=== PATIENT | female | born 1980 | race Caucasian/White ===

== ENCOUNTER 2022-05-21 13:13 | Inpatient (IN) ==
[2022-05-21] MEDS ORDERED: NS 0.9% 1000 ml BAG 1,000 ML IV ONE (13:38)
[2022-05-21 13:57] LABS: ABS Lymphocytes 1.3 10^3/ul (1.0-4.8); ABS Monocytes 0.4 10^3/ul (0-0.8); ABS Neutrophils 5.5 10^3/ul (1.5-7.7); Eosinophil % 0.1 %; Hematocrit 42 % (35-47); Hemoglobin 14.1 g/dL (12.0-16.0); Lymphocyte % 17.9 %; Mean Corpuscular HGB Conc 33 g/dL (31-36); Mean Corpuscular Hemoglobin 34 pg (27-31); Mean Corpuscular Volume 102 fL (80-97); Mean Platelet Volume 8.8 fL (7.4-10.4); Platelet Count 187 10^3/uL (150-450); Red Blood Count 4.16 10^6 /uL (3.70-4.87); Red Cell Distribution Width 13 % (10-15); White Blood Count 7.2 10^3/uL (3.5-10.8)
[2022-05-21 14:47] LABS: HCG Pregnancy < 0.60 mIU/mL
[2022-05-21 14:54] LABS: TSH Ultra Thyroid Stim Horm 1.68 mcIU/mL (0.34-5.60)
[2022-05-21 15:03] LABS: ALT 31 U/L (7-52); AST 39 U/L (13-39); Acetaminophen < 15 mcg/mL; Albumin/Globulin Ratio 1.9 (1-3); Alcohol, S < 13 mg/dL (<13); Alkaline Phosphatase 48 U/L (35-149); Anion Gap 9 mmol/L (2-11); Blood Urea Nitrogen 16 mg/dL (6-24); CO2 Carbon Dioxide 27 mmol/L (22-32); Chloride 99 mmol/L (101-111); Creatinine, Serum 0.69 mg/dL (0.51-0.95); Globulin 2.7 g/dL (2-4); Glucose 91 mg/dL (70-100); Potassium 3.8 mmol/L (3.5-5.0); Salicylate < 2.50 mg/dL (<30); Sodium 135 mmol/L (135-145); Total Protein 7.7 g/dL (6.4-8.9); eGFR CKD-EPI 111.1 (>60)
[2022-05-21] MEDS ORDERED: Al Hydrox/Mg Hydrox/Simet LIQ 30 ML UDC PO PRN (16:13)
[2022-05-21 20:55] VITALS: BP 116/87
== END 2022-05-21 20:55 | disposition home or self-care (01) | DRG 812 ==
LOC: ED 13:13 → EDHOLD 17:33
PROVIDERS: ADMIT Psychiatry & Neurology Psychiatry; ATTEND Psychiatry & Neurology Psychiatry